=== PATIENT | female | born 1950 | race Caucasian/White ===

== ENCOUNTER 2023-10-06 20:16 | Emergency (ER) | payer MEDICARE, SELFPAY ==
[2023-10-06 20:19] VITALS: BP 206/78; PULSE 60; RESP 20; TEMP 36.8; O2SAT 99
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
[2023-10-06 21:04] VITALS: RESP 18
[2023-10-06 21:11] LABS: Bilirubin Negative (Negative); Blood Trace-intact (Negative); Clarity Sl Cloudy (Clear); Glucose Negative (Negative); Ketones Negative (Negative); Leukocyte Esterase Negative (Negative); Nitrite Negative (Negative); Specific Gravity 1.015 (1.005-1.025); Urobilinogen 0.2 mg/dL (Up to 0.2)
[2023-10-06 21:19] LABS: Bacteria Moderate HPF (Negative); C & S Indicated? Yes; Casts Negative LPF (Negative); Crystals Negative HPF (Negative); Epithelial Cells Few HPF (Negative); Mucus Negative (Negative); RBC 0-2 HPF (0-2)
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
[2023-10-06 22:02] VITALS: PULSE 72; RESP 18; O2SAT 96
--- NOTE | 2023-10-09 09:40 | NUR.NOTE ---
Accessed chart to look up whether or not on antibiotic for culture result. Nursing Note:
--- NOTE | 2023-10-11 10:55 | W.ED.FU ---
Date of service: 10/11/23 Time of Service: 10:55 Follow Up Plan: Urine culture resulted: E. coli greater than 100,000, pansensitive including Macrobid. I called and spoke with the patient and her . notes some continued mild confusion. Plan will be to initiate treatment with Macrobid. Macrobid prescription was called to [facility] in [place] as requested. Patient does have follow-up scheduled with her PCP and neurology as well. I did review with her that her blood pressure was elevated here during her visit. I recommended she monitor her blood pressure and maintain a log and discuss her blood pressure with her primary care physician soon as possible. She understands that should blood pressure remain elevated, she may need additional diagnostic workup or treatment.
== END 2023-10-06 22:02 | disposition home or self-care (01) ==
PROVIDERS: Emergency Provider Emergency Medicine
DX: R41.89 Other symptoms and signs involving cognitive functions and awareness (principal); V89.0XXA Person injured in unspecified motor-vehicle accident, nontraffic, initial encounter
CPT/HCPCS: 87077; 99284; 70450; 81003; 81015; 87086; 87186; 99283